=== PATIENT | female | born 1985 ===

== ENCOUNTER 2018-02-22 11:41 | Emergency (ER) | payer OTHER, SELFPAY ==
[2018-02-22] VITALS (7 sets, daily range): BP systolic 140–153; BP diastolic 86–107; PULSE 103–137; RESP 11–18; TEMP 36.5; O2SAT 97–99; BMI 29.9
[2018-02-22 12:21] LABS: INR 1.3 (0.9-1.3); Prothrombin Time 14.3 SECONDS (10.1-12.7)
[2018-02-22 12:23] LABS: PTT Partial Thromboplastin Tim 36 SECONDS (26.4-36.2)
[2018-02-22 12:27] LABS: Alanine Aminotransferase 24 IU/L (9-52); Albumin Globulin Ratio 0.7 (1.0-2.8); Alkaline Phosphatase 527 U/L (38-126); Aspartate Aminotransferase 58 IU/L (14-36); BUN Creatinine Ratio 18.3 (6-22); Bilirubin Total 0.8 mg/dL (0.2-1.3); Blood Urea Nitrogen 11 mg/dL (7-17); Calcium 8.4 mg/dL (8.4-10.2); Carbon Dioxide 32 mmol/L (22-32); Chloride 90 mmol/L (98-107); Estimated Glomerular Filt Rate > 60.0 mL/min (>60); Globulin 4.5 g/dL (1.7-4.1); Glucose 187 mg/dL (70-100); HEMOLYSIS < 15 (0-50); Lipase 12 U/L (23-300); Potassium 3.8 mmol/L (3.4-5.1); Sodium 132 mmol/L (137-145); Total Protein 7.5 g/dL (6.3-8.2)
[2018-02-22 12:29] LABS: Add Manual Diff / Slide Review NO; Basophils Percent Auto 0.7 % (0-2); Eosinophils Percent Auto 0.3 % (2-4); Hematocrit 28.7 % (36-46); Hemoglobin 9.1 g/dL (12.0-16.0); Mean Corpuscular HGB Conc 31.6 % (30-36); Mean Corpuscular Hemoglobin 21.7 PG (26-34); Mean Corpuscular Volume 68.7 fL (80-100); Monocytes Percent Auto 11.7 % (3-14); Neutrophils Absolute Auto 14900 /uL (3000-5900); Neutrophils Percent Auto 79.3 % (50-75); Red Blood Cell Count 4.18 X10^6/uL (4.0-5.2); Red Cell Distribution Width 18.7 % (11.6-14.8); White Blood Cell Count 18.8 X10^3/uL (4.5-11.0)
--- NOTE | 2018-02-22 12:39 | ED.NAVMDI ---
HPI - Nausea/Vomiting/Diarrhea General Chief complaint: Nausea/Vomiting/Diarrhea Stated complaint: SICK AND DIABETIC Time Seen by Provider: 02/22/18 12:14 Source: patient Mode of arrival: ambulatory Limitations: no limitations History of Present Illness HPI Narrative: Patient states she has been feeling nauseated and vomiting intermittently for the last 2 weeks. She states she just feels ?sick?. Patient does note that she has not vomited today, and has been able to hold down quite a bit of fluid. She states that she is feeling better here. Patient is a diabetic, but states that her blood sugars have not been running terribly high--in the 100s. Patient denies fevers, diarrhea, cough, chest pain, shortness of breath, rhinorrhea, or sore throat. No ear pain. No back pain. No dysuria. Patient has a history of a diabetic foot infection previously, but states that she does not have any skin or foot changes. No other complaints at this time. MD complaint: nausea and vomiting Onset (ago): week(s) (Two) Description of Vomiting: other (Stomach contents) Description of Diarrhea: none Associated Abdominal Pain: No Associated symptoms: anxiety Related Data Home Medications Medication Instructions Recorded Confirmed insulin aspart U-100 [Novolog 0 unit SQ TIDCC #0 02/06/16 02/22/18 Flexpen U-100 Insulin] insulin glargine [Lantus U-100 1 dose SQ BID #0 02/06/16 02/22/18 Insulin] dextroamphetamine-amphetamine 1 cap PO DAILY 02/22/18 dextroamphetamine-amphetamine 1 cap PO DAILY 02/22/18 02/22/18 Previous Rx's Medication Instructions Recorded ondansetron [Zofran ODT] 4 mg PO QID PRN #20 tab 02/22/18 sulfamethoxazole-trimethoprim 1 tab PO BID #14 tab 02/22/18 [Bactrim DS] Allergies Allergy/AdvReac Type Severity Reaction Status Date / Time No Known Drug Allergies Allergy Verified 02/22/18 11:48 Review of Systems Review of Systems All systems reviewed & are unremarkable except as noted in HPI and below Constitutional Denies chills, Denies fever(s), Denies lethargy and Reports malaise Eyes Denies change in vision, Denies eye discharge, Denies irritation and Denies loss of vision ENT Ears, Nose, Mouth, and Throat: Denies change in voice, Denies neck pain and Denies sore throat Cardiovascular Denies chest pain, Denies irregular heart rhythm, Denies lightheadedness, Denies palpitations, Denies dyspnea, Denies dyspnea on exertion and Denies orthopnea Respiratory Denies cough, Denies dyspnea, Denies dyspnea on exertion and Denies wheezing Gastrointestinal Gastrointestinal: Denies abdominal pain, Denies change in bowel habits, Denies diarrhea, Reports nausea and Reports vomiting Genitourinary Denies hematuria, Denies flank pain, Denies urinary incontinence and Denies urinary urgency Musculoskeletal Denies neck pain Integumentary/Breasts Denies pruritus, Denies erythema, Denies rash and Denies wounds Neurologic Denies confusion and Denies loss of vision Psychiatric Denies anxiety, Denies confusion, Denies depression, Denies homicidal ideation and Denies suicidal ideation Endocrine Denies palpitations Hematologic/Lymphatic Denies easy bruising Allergic/Immunologic Denies wheezing [facility] Medical History Diabetes (Acute) Surgical History No pertinent past surgical history (Acute) Social History Smoking Status: Unknown if ever smoked Exam Initial Vital Signs Initial Vital Signs: Vital Signs Pulse Rate 137 H 02/22/18 11:48 Respiratory Rate 18 02/22/18 11:48 Blood Pressure 149/107 H 02/22/18 11:48 Pulse Oximetry 97 02/22/18 11:48 Const General: cooperative and well developed Nutritional Appearance: well nourished Orientation: alert, awake, oriented x3 and not confused [facility] Head: normocephalic and atraumatic Ears: external ears normal Nose: external nose normal and No nasal discharge Face and sinus: face symmetric and No dry mucous membranes Mouth: oral mucosae normal and moist mucous membranes Teeth and gingiva: dentition normal Eyes General: appearance normal, both eyes and all related structures Eyelids: eyelids normal Conjunctivae: conjunctivae normal Sclera: sclerae normal Pupils: PERRL EOM: EOM intact bilaterally Neck Neck: normal visual inspection, trachea midline, No lymphadenopathy, No midline deformity and No JVD Lymphatic: No lymphedema Chest Chest: normal inspection of the chest Resp Effort & Inspection: normal respiratory effort, able to speak in complete sentences, no respiratory distress and no use of accessory muscles Auscultation: clear to auscultation bilaterally, no rales, no rhonchi and no wheezes Cardio Rate: regular rate Rhythm: regular rhythm Heart Sounds: no click, no gallops, no murmurs and no rubs Pulses: normal peripheral pulses GI Inspection: non-distended Palpation: soft, no hepatosplenomegaly, No guarding, No pulsatile mass and No tender Auscultation: normal bowel sounds Back/Spine/Pelvis Back: No CVA tenderness Cervical Spine: cervical ROM normal and No pain with cervical ROM Thoracic/Lumbar Spine: thoracic and lumbar spine normal to inspection Skin General: no rashes or lesions noted, No jaundice and No petechiae Neuro General: alert, oriented x3, gait normal and no focal motor deficits Speech: speech normal Extrem General: full ROM, no clubbing, cyanosis or edema, no pedal edema and no calf tenderness Psych Appearance: well kempt Mental Status: mental status grossly normal Attitude: cooperative Thought Content: normal and suicidality Judgment: judgment good Course Course Narrative: Patient was worked up with labs and UA. She was found to be tachycardic on arrival, and was given a L of normal saline and Zofran. Orders Ordered: Discontinued Medications Sodium Chloride (Normal Saline 0.9%) 1,000 mls @ 1,000 mls/hr IV BOLUS ONE Stop: 02/22/18 14:32 Last Infusion: 02/22/18 14:21 Dose: 0 mls/hr Admin: 02/22/18 13:40 Dose: 1,000 mls/hr Ondansetron HCl (Zofran) 4 mg IV NOW ONE Stop: 02/22/18 13:34 Last Admin: 02/22/18 13:40 Dose: 4 mg Trimethoprim/Sulfamethoxazole (Bactrim Ds) 1 tab PO NOW ONE Stop: 02/22/18 14:13 Last Admin: 02/22/18 14:16 Dose: 1 tab Vital Signs - 8 hr 02/22/18 11:48 02/22/18 11:53 02/22/18 12:22 Temperature 97.7 F Pulse Rate 137 H 118 H 111 H Respiratory Rate 18 12 12 Blood Pressure 149/107 H Blood Pressure [Right Arm] 149/107 H 140/105 H Pulse Oximetry 97 97 98 02/22/18 12:35 02/22/18 13:00 Temperature Pulse Rate 110 H 107 H Respiratory Rate 12 13 Blood Pressure Blood Pressure [Right Arm] 144/92 H 141/86 H Pulse Oximetry 98 98 MDM - Nausea/Vomiting/Diarrhea Medical Records Attestation: I reviewed the patient's medical records. Lab Data Attestation: I reviewed the patient's lab results. Result diagrams: 02/22/18 12:00 02/22/18 12:00 Lab Results 02/22/18 02/22/18 02/22/18 Range/Units 12:00 12:00 12:00 WBC 18.8 H (4.5-11.0) X10^3/uL RBC 4.18 (4.0-5.2) X10^6/uL Hgb 9.1 L (12.0-16.0) g/dL Hct 28.7 L (36-46) % MCV 68.7 L (80-100) fL MCH 21.7 L (26-34) PG MCHC 31.6 (30-36) % RDW 18.7 H (11.6-14.8) % Plt Count 668 H (150-400) X10^3/uL Neut % (Auto) 79.3 H (50-75) % Lymph % (Auto) 8.0 L (25-40) % [place] % (Auto) 11.7 (3-14) % Eos % (Auto) 0.3 L (2-4) % Baso % (Auto) 0.7 (0-2) % Neut # (Auto) 14341 H (6623-3729) /uL RBC Morphology See below Polychromasia 1+ H Anisocytosis 2+ H Microcytosis 2+ H PT 14.3 H (10.1-12.7) SECONDS INR 1.3 (0.9-1.3) APTT 36 (26.4-36.2) SECONDS Sodium 132 L (137-145) mmol/L Potassium 3.8 (3.4-5.1) mmol/L Chloride 90 L (98-107) mmol/L Carbon Dioxide 32 (22-32) mmol/L BUN 11 (7-17) mg/dL Creatinine 0.60 (0.52-1.04) mg/dL Estimated GFR > 60.0 (>60) mL/min BUN/Creatinine Ratio 18.3 (6-22) Glucose 187 H (70-100) mg/dL Calcium 8.4 (8.4-10.2) mg/dL Total Bilirubin 0.8 (0.2-1.3) mg/dL AST 58 H (14-36) IU/L ALT 24 (9-52) IU/L Alkaline Phosphatase 527 H (38-126) U/L Total Protein 7.5 (6.3-8.2) g/dL Albumin 3.0 L (3.5-5.0) g/dL Globulin 4.5 H (1.7-4.1) g/dL Albumin/Globulin Ratio 0.7 L (1.0-2.8) Lipase 12 L (23-300) U/L Urine Color Urine Appearance Urine pH (4.5-8.0) Ur Specific Rose (1.000-1.035) Urine Protein (Negative) Urine Glucose (UA) (Normal) g/dL Urine Ketones (NEGATIVE) Urine Occult Blood (Negative) Urine Nitrate (Negative) Urine Bilirubin (NEGATIVE) Urine Urobilinogen (0.2) E.U./dL Ur Leukocyte Esterase (NEGATIVE) Urine RBC (0-5/HPF) Urine WBC (0-5/HPF) Ur Squamous Epith Cells Ur Transition Epith Cell (0-5/HPF) Ur Renal Epithelial Cell Urine Bacteria (None) Ur Culture Indicated? Micro UA Comment 02/22/18 Range/Units 13:40 WBC (4.5-11.0) X10^3/uL RBC (4.0-5.2) X10^6/uL Hgb (12.0-16.0) g/dL Hct (36-46) % MCV (80-100) fL MCH (26-34) PG MCHC (30-36) % RDW (11.6-14.8) % Plt Count (150-400) X10^3/uL Neut % (Auto) (50-75) % Lymph % (Auto) (25-40) % [place] % (Auto) (3-14) % Eos % (Auto) (2-4) % Baso % (Auto) (0-2) % Neut # (Auto) (3110-0964) /uL RBC Morphology Polychromasia Anisocytosis Microcytosis PT (10.1-12.7) SECONDS INR (0.9-1.3) APTT (26.4-36.2) SECONDS Sodium (137-145) mmol/L Potassium (3.4-5.1) mmol/L Chloride (98-107) mmol/L Carbon Dioxide (22-32) mmol/L BUN (7-17) mg/dL Creatinine (0.52-1.04) mg/dL Estimated GFR (>60) mL/min BUN/Creatinine Ratio (6-22) Glucose (70-100) mg/dL Calcium (8.4-10.2) mg/dL Total Bilirubin (0.2-1.3) mg/dL AST (14-36) IU/L ALT (9-52) IU/L Alkaline Phosphatase (38-126) U/L Total Protein (6.3-8.2) g/dL Albumin (3.5-5.0) g/dL Globulin (1.7-4.1) g/dL Albumin/Globulin Ratio (1.0-2.8) Lipase (23-300) U/L Urine Color Yellow Urine Appearance Clear Urine pH 6.0 (4.5-8.0) Ur Specific Rose <=1.005 (1.000-1.035) Urine Protein 2+ H (Negative) Urine Glucose (UA) Negative (Normal) g/dL Urine Ketones Negative (NEGATIVE) Urine Occult Blood 3+ H (Negative) Urine Nitrate Negative (Negative) Urine Bilirubin Negative (NEGATIVE) Urine Urobilinogen 2.0 H (0.2) E.U./dL Ur Leukocyte Esterase Trace H (NEGATIVE) Urine RBC 1-5/hpf (0-5/HPF) Urine WBC 1-5/hpf (0-5/HPF) Ur Squamous Epith Cells 1-5 /hpf Ur Transition Epith Cell 0-1/hpf (0-5/HPF) Ur Renal Epithelial Cell 0-1/hpf Urine Bacteria Few (2-10) H (None) Ur Culture Indicated? Specimen cultured Micro UA Comment Not Reportable Point of Care Testing Test Results Negative Glucose POC 176 Urine Dip Bedside Urine Glucose Negative Bedside Urine Bilirubin - Negative Bedside Urine Ketone - Negative Urine Specific Rose 1.010 Bedside Urine Occult Blood +++ Bedside Urine pH 6.0 Bedside Urine Protein ++ 100 Bedside Urine Urobilinogen +/- 1mg Bedside Urine Nitrite - Negative Bedside Urine Leukocytes - Negative Esterase MDM Narrative Medical decision making narrative: patient was treated with IV fluids in the emergency department, and reported feeling better after this and Zofran. Her workup was unremarkable for concerning abnormalities in an acute or emergent sense. I spoke with the patient who is feeling much better and desired to go home. We have discussed management at home, as well as the usual indications for return. Patient's mother is present, and also understands. Discharge Plan Departure Patient Disposition: Home Clinical Impression: UTI (urinary tract infection), Vomiting Discharge Date/Time: 02/22/18 14:22 Interventions: ED Discharge Assessment Last Done: 02/22/18 14:22 Instructions: DI for Urinary Tract Infection (UTI), DI for Vomiting -- Adult Activity Restrictions/Additional Instructions: Your labs showed a moderately elevated blood glucose, as well as a moderately elevated white blood cell count. Urinalysis showed a urinary tract infection, which may be part of the reason you have felt sick for the last 2 weeks. Please take the antibiotics as directed, and the nausea medicine as needed. Be sure to get plenty of fluids to drink. If your symptoms are getting worse despite these treatments, please seek medical re-evaluation without delay. Prescriptions: New sulfamethoxazole-trimethoprim [Bactrim DS] 800-160 mg tablet 1 tab PO BID Qty: 14 RF: 0 ondansetron [Zofran ODT] 4 mg tablet,disintegrating 4 mg PO QID PRN (Reason: nausea and vomiting) Qty: 20 RF: 0 No Action insulin glargine [Lantus U-100 Insulin] 100 UNIT/1 ML solution 1 dose SQ BID Qty: 0 RF: 0 insulin aspart U-100 [Novolog Flexpen U-100 Insulin] 100 UNIT/1 ML insulin pen SQ TIDCC Qty: 0 RF: 0 dextroamphetamine-amphetamine 30 mg capsule,extended release 24hr 1 cap PO DAILY RF: 0 dextroamphetamine-amphetamine 15 mg capsule,extended release 24hr 1 cap PO DAILY RF: 0 Referrals: [facility] [Provider Group]
[2018-02-22 12:47] LABS: Platelet Count 668 X10^3/uL (150-400)
[2018-02-22 12:50] LABS: Anisocytosis 2+; Microcytosis 2+; Polychromasia 1+
[2018-02-22] MEDS: SODIUM CHLORIDE 0.9% 1,000 ML 1000 ML IV (13:40)
[2018-02-22] MEDS: ONDANSETRON 4 MG/2 ML INJ IV (13:40)
[2018-02-22 13:54] LABS: Appearance Urine UA CLEAR; Bilirubin Urine UA NEGATIVE (NEGATIVE); Color Urine UA YELLOW; Glucose Urine UA NEGATIVE (Normal); Ketones Urine UA NEGATIVE (NEGATIVE); Leukocyte Esterase Urine UA TRACE (NEGATIVE); Nitrite Urine UA Negative (Negative); Occult Blood Urine UA 3+ (Negative); Protein Urine UA 2+ (Negative); Specific Gravity Urine UA <=1.005 (1.000-1.035)
[2018-02-22 14:11] LABS: Bacteria Urine Few (2-10); Culture Indicated Urine Specimen Cultured; RBC Urine 1-5/HPF (0-5/HPF); Renal Epithelial Cells Urine 0-1/HPF; Squamous Epithelial Cell Urine 1-5 /HPF; Transitional Epi Cells Urine 0-1/HPF (0-5/HPF); WBC Urine 1-5/HPF (0-5/HPF)
[2018-02-22] MEDS: TRIMETH/SULFA 160/800 (DS) TABLET 1 TAB PO (14:16)
== END 2018-02-22 14:22 | disposition home or self-care (01) ==
PROVIDERS: Emergency Provider Emergency Medicine
DX: N39.0 Urinary tract infection, site not specified (principal); R11.10 Vomiting, unspecified
CPT/HCPCS: 36591; 80053; 81001; 81003; 81025; 82962; 83690; 85025; 85610; 85730; 87086; 93005; 93010; 96361; 96374; 99283; 99284; J2405

== ENCOUNTER 2018-03-01 19:58 | Emergency (ER) | payer OTHER, SELFPAY ==
[2018-03-01 20:02] VITALS: BP 157/102; PULSE 150; RESP 22; TEMP 36.8; O2SAT 96
[2018-03-01 21:00] VITALS: BP 145/90; PULSE 128; O2SAT 98
[2018-03-01 21:50] LABS: Add Manual Diff / Slide Review NO; Basophils Percent Auto 0.7 % (0-2); Eosinophils Percent Auto 0.5 % (2-4); Hematocrit 27.9 % (36-46); Hemoglobin 8.5 g/dL (12.0-16.0); Lymphocytes Percent Auto 8.1 % (25-40); Mean Corpuscular HGB Conc 30.5 % (30-36); Mean Corpuscular Hemoglobin 21.3 PG (26-34); Mean Corpuscular Volume 69.6 fL (80-100); Monocytes Percent Auto 11.4 % (3-14); Neutrophils Absolute Auto 12700 /uL (3000-5900); Neutrophils Percent Auto 79.3 % (50-75); Platelet Count 627 X10^3/uL (150-400); Red Blood Cell Count 4.01 X10^6/uL (4.0-5.2); Red Cell Distribution Width 19.2 % (11.6-14.8)
[2018-03-01 21:57] LABS: Alanine Aminotransferase 24 IU/L (9-52); Albumin 2.7 g/dL (3.5-5.0); Albumin Globulin Ratio 0.7 (1.0-2.8); Alkaline Phosphatase 495 U/L (38-126); Aspartate Aminotransferase 84 IU/L (14-36); Bilirubin Total 0.5 mg/dL (0.2-1.3); Blood Urea Nitrogen 14 mg/dL (7-17); Calcium 8.1 mg/dL (8.4-10.2); Carbon Dioxide 31 mmol/L (22-32); Chloride 90 mmol/L (98-107); Estimated Glomerular Filt Rate > 60.0 mL/min (>60); Globulin 4.1 g/dL (1.7-4.1); Glucose 407 mg/dL (70-100); HEMOLYSIS < 15 (0-50); Potassium 3.6 mmol/L (3.4-5.1); Sodium 128 mmol/L (137-145); Total Protein 6.8 g/dL (6.3-8.2)
[2018-03-01 22:00] VITALS: BP 138/94; PULSE 126; O2SAT 99
[2018-03-01 22:01] LABS: Ketones (Beta-Hydroxybutyrate) 1.26 mmol/L (<0.27)
[2018-03-01 22:10] LABS: Anisocytosis 1+; Hypochromasia 1+; Microcytosis 1+
[2018-03-01 22:12] LABS: PCO2 VBG 34.9 mmHg (45-50); PO2 VBG 53 mmHg (35-45); pH VBG 7.53 (7.31-7.41)
[2018-03-01 22:13] LABS: HCO3 VBG 29 mmol/L (24-28); Oxygen Saturation VBG 91 % (70-75); Total CO2 VBG 30 mmol/L (24-29)
[2018-03-01 22:18] LABS: Procalcitonin 4.39 ng/mL (<0.5)
[2018-03-01] MEDS: ONDANSETRON 4 MG/2 ML INJ IV (22:21)
[2018-03-01 22:23] LABS: Lactate (Lactic Acid) 0.8 mmol/L (0.7-2.1)
--- NOTE | 2018-03-01 22:34 | ED_ITS ---
HPI - Nausea/Vomiting/Diarrhea General Chief complaint: Nausea/Vomiting/Diarrhea Stated complaint: DIABETIC Time Seen by Provider: 03/01/18 21:18 Source: patient and old records reviewed Mode of arrival: ambulatory Limitations: no limitations History of Present Illness HPI Narrative: Patient is a 32-year-old female who presents is a type 1 diabetic presenting with nausea and vomiting. She was seen evaluated here on where she was diagnosed with a UTI. Her blood cultures and urine did not are actually grow anything. That time she leukocytosis of 18. She said she has lost about 20 lb over last couple months without trying. She has been to her doctors and feels like something is wrong but is brushed off. She is out of Lantus. However she is continuing to take her NovoLog. Overall she does not feel well. Initially quite tachycardic but afebrile. She says she has been dry heaving. She has difficulty keeping food down. She denies any blood or black tarry stool. She has no specific abdominal pain fever cough or shortness of breath. She says she stands up she frequently gets lightheaded she almost passes out. She cannot carry her son and she has not fully passed out but feels as though she does not have any strength. MD complaint: nausea, vomiting and abdominal pain Related Data Home Medications Medication Instructions Recorded Confirmed insulin aspart U-100 [Novolog 0 unit SQ TIDCC #0 02/06/16 03/02/18 Flexpen U-100 Insulin] insulin glargine [Lantus U-100 1 dose SQ BID #0 02/06/16 03/02/18 Insulin] dextroamphetamine-amphetamine 1 cap PO DAILY 02/22/18 03/02/18 dextroamphetamine-amphetamine 1 cap PO DAILY 02/22/18 03/02/18 Previous Rx's Medication Instructions Recorded ondansetron [Zofran ODT] 4 mg PO QID PRN #20 tab 02/22/18 sulfamethoxazole-trimethoprim 1 tab PO BID #14 tab 02/22/18 [Bactrim DS] insulin glargine [Lantus U-] 40 unit SUBCUT BID #10 ml 03/02/18 levofloxacin [Levaquin] 750 mg PO DAILY #5 tab 03/02/18 metoclopramide HCl [Reglan] 5 mg PO TID #14 tab 03/02/18 Allergies Allergy/AdvReac Type Severity Reaction Status Date / Time No Known Drug Allergies Allergy Verified 02/22/18 11:48 Review of Systems Review of Systems All systems reviewed & are unremarkable except as noted in HPI and below Constitutional Reports fatigue, Reports fever(s) and Reports poor appetite Eyes Denies change in vision, Denies eye discharge, Denies irritation and Denies loss of vision ENT Ears, Nose, Mouth, and Throat: Denies change in voice, Denies neck pain and Denies sore throat Cardiovascular Denies chest pain, Reports syncope (Near syncope), Reports rapid heart rate, Denies dyspnea and Denies dyspnea on exertion Respiratory Denies cough, Denies dyspnea, Denies dyspnea on exertion and Denies wheezing Gastrointestinal Gastrointestinal: Reports abdominal pain Genitourinary Denies hematuria, Denies flank pain, Denies urinary incontinence and Denies urinary urgency Musculoskeletal Denies neck pain Integumentary/Breasts Denies pruritus, Denies erythema, Denies rash and Denies wounds Neurologic Reports syncope (Near syncope) and Denies loss of vision Endocrine Reports fatigue Allergic/Immunologic Denies wheezing [facility] Social History Smoking Status: Current every day smoker Exam Initial Vital Signs Initial Vital Signs: Vital Signs Temperature 98.3 F 03/01/18 20:02 Pulse Rate 150 H 03/01/18 20:02 Respiratory Rate 22 03/01/18 20:02 Blood Pressure 157/102 H 03/01/18 20:02 Pulse Oximetry 96 03/01/18 20:02 GENERAL: Alert female frustrated appears in mild distress. Tearful HEENT: Head atraumatic,EOMI, pupils reactive, face symmetric, dry mucous membranes CARDIOVASCULAR: Tachycardic no murmur regular RESPIRATORY: Breath sounds equal bilaterally, no wheezes rales or rhonchi. ABDOMEN: Soft, nontender. Normoactive bowel sounds all 4 quadrants. No guarding or rebound. EXTREMITIES: Normal range of motion, no clubbing or edema. Neurovascularly intact Rectal: No gross blood faintly positive. NEUROLOGICAL: Alert and oriented x4.Normal gait and speech. Cranial nerves II through XII grossly intact. SKIN: Warm, dry, no laceration, no petechiae, no rashes or lesions. Chest Chest: normal inspection of the chest Scores PERC Score Age greater than or equal to 50 years: No Heart rate greater than or equal to 100 bpm: Yes Room Air O2 Sat less than 95%: No Unilateral leg swelling: No Recent trauma or surgery: No Hemoptysis: No Prior PE or DVT: No Hormone Use: No Total PERC Score: 1 Course Orders Ordered: ED Orders 03/01/18 20:43 Complete Blood Count AUTO DIFF Stat Comprehensive Metabolic Panel Stat D Dimer Stat Ketones (Beta-Hydroxybutyrate) Stat Procalcitonin Stat 03/01/18 21:43 EKG-12 Lead Stat 03/01/18 21:57 Blood Culture Stat Lactate (Lactic Acid) Stat 03/01/18 21:58 Venous Blood Gas Stat 03/01/18 23:22 CT abdomen pelvis w con Stat CT angio chest PE protocol Stat 03/01/18 23:50 Urine Microscopic Stat Discontinued Medications Lactated Ringer's (Lactated Ringers) 500 mls @ 2,000 mls/hr IV BOLUS ONE Stop: 03/01/18 22:57 Last Admin: 03/01/18 22:54 Dose: Lactated Ringer's (Lactated Ringers) 2,000 mls @ 1,000 mls/hr IV BOLUS ONE Stop: 03/02/18 00:42 Last Infusion: 03/02/18 01:55 Dose: 0 mls/hr Infusion: 03/02/18 00:25 Dose: 100 mls/hr Infusion: 03/01/18 23:54 Dose: 1,000 mls/hr Infusion: 03/01/18 23:31 Dose: 0 mls/hr Admin: 03/01/18 22:57 Dose: 1,000 mls/hr Levofloxacin (Levaquin) 750 mg in 150 mls @ 100 mls/hr IV NOW ONE Stop: 03/02/18 01:42 Last Infusion: 03/02/18 02:01 Dose: 100 mls/hr Admin: 03/02/18 00:22 Dose: 100 mls/hr Metoclopramide HCl (Reglan) 10 mg IV NOW ONE Stop: 03/01/18 22:44 Last Admin: 03/01/18 22:57 Dose: 10 mg Ondansetron HCl (Zofran) 4 mg IV NOW ONE Stop: 03/01/18 21:43 Last Admin: 03/01/18 22:21 Dose: 4 mg Pantoprazole Sodium (Protonix) 40 mg IV NOW ONE Stop: 03/01/18 22:45 Last Admin: 03/01/18 22:57 Dose: 40 mg Vital Signs - 8 hr 03/01/18 20:02 03/01/18 21:00 03/01/18 22:00 Temperature 98.3 F Pulse Rate 150 H 128 H 126 H Respiratory Rate 22 Blood Pressure 157/102 H Blood Pressure [Left Arm] 145/90 H 138/94 H Pulse Oximetry 96 98 99 03/01/18 23:00 03/02/18 00:00 Temperature Pulse Rate 112 H 104 H Respiratory Rate 20 20 Blood Pressure Blood Pressure [Left Arm] 145/80 H 136/89 Pulse Oximetry 98 99 MDM - Nausea/Vomiting/Diarrhea Medical Records Attestation: I reviewed the patient's medical records. Lab Data Attestation: I reviewed the patient's lab results. Result diagrams: 03/01/18 20:43 03/01/18 20:43 Lab Results 03/01/18 03/01/18 03/01/18 Range/Units 20:43 20:43 20:43 WBC 16.0 H (4.5-11.0) X10^3/uL RBC 4.01 (4.0-5.2) X10^6/uL Hgb 8.5 L (12.0-16.0) g/dL Hct 27.9 L (36-46) % MCV 69.6 L (80-100) fL MCH 21.3 L (26-34) PG MCHC 30.5 (30-36) % RDW 19.2 H (11.6-14.8) % Plt Count 627 H (150-400) X10^3/uL Neut % (Auto) 79.3 H (50-75) % Lymph % (Auto) 8.1 L (25-40) % [place] % (Auto) 11.4 (3-14) % Eos % (Auto) 0.5 L (2-4) % Baso % (Auto) 0.7 (0-2) % Neut # (Auto) 18067 H (6548-6011) /uL RBC Morphology See below Hypochromasia 1+ H Anisocytosis 1+ H Microcytosis 1+ H D-Dimer (<230) ng/mL VBG pH (7.31-7.41) VBG pCO2 (45-50) mmHg VBG pO2 (35-45) mmHg VBG HCO3 (24-28) mmol/L VBG Total CO2 (24-29) mmol/L VBG O2 Saturation (70-75) % VBG Base Excess (0-4) mmol/L Sodium 128 L (137-145) mmol/L Potassium 3.6 (3.4-5.1) mmol/L Chloride 90 L (98-107) mmol/L Carbon Dioxide 31 (22-32) mmol/L BUN 14 (7-17) mg/dL Creatinine 0.50 L (0.52-1.04) mg/dL Estimated GFR > 60.0 (>60) mL/min BUN/Creatinine Ratio 28.0 H (6-22) Glucose 407 H D (70-100) mg/dL Lactate (0.7-2.1) mmol/L Calcium 8.1 L (8.4-10.2) mg/dL Total Bilirubin 0.5 (0.2-1.3) mg/dL AST 84 H (14-36) IU/L ALT 24 (9-52) IU/L Alkaline Phosphatase 495 H (38-126) U/L Total Protein 6.8 (6.3-8.2) g/dL Albumin 2.7 L (3.5-5.0) g/dL Globulin 4.1 (1.7-4.1) g/dL Albumin/Globulin Ratio 0.7 L (1.0-2.8) Procalcitonin 4.39 H (<0.5) ng/mL Urine RBC (0-5/HPF) Urine WBC (0-5/HPF) Ur Squamous Epith Cells Amorphous Sediment Urine Bacteria (None) Hyaline Casts (None) Granular Casts (None) Urine Mucus (Negative) Ur Culture Indicated? Micro UA Comment Ketones 1.26 H (<0.27) mmol/L 03/01/18 03/01/18 03/01/18 Range/Units 20:43 21:57 21:58 WBC (4.5-11.0) X10^3/uL RBC (4.0-5.2) X10^6/uL Hgb (12.0-16.0) g/dL Hct (36-46) % MCV (80-100) fL MCH (26-34) PG MCHC (30-36) % RDW (11.6-14.8) % Plt Count (150-400) X10^3/uL Neut % (Auto) (50-75) % Lymph % (Auto) (25-40) % [place] % (Auto) (3-14) % Eos % (Auto) (2-4) % Baso % (Auto) (0-2) % Neut # (Auto) (8677-1759) /uL RBC Morphology Hypochromasia Anisocytosis Microcytosis D-Dimer 1838 H (<230) ng/mL VBG pH 7.53 H (7.31-7.41) VBG pCO2 34.9 L (45-50) mmHg VBG pO2 53 H (35-45) mmHg VBG HCO3 29 H (24-28) mmol/L VBG Total CO2 30 H (24-29) mmol/L VBG O2 Saturation 91 H (70-75) % VBG Base Excess 6.0 H (0-4) mmol/L Sodium (137-145) mmol/L Potassium (3.4-5.1) mmol/L Chloride (98-107) mmol/L Carbon Dioxide (22-32) mmol/L BUN (7-17) mg/dL Creatinine (0.52-1.04) mg/dL Estimated GFR (>60) mL/min BUN/Creatinine Ratio (6-22) Glucose (70-100) mg/dL Lactate 0.8 (0.7-2.1) mmol/L Calcium (8.4-10.2) mg/dL Total Bilirubin (0.2-1.3) mg/dL AST (14-36) IU/L ALT (9-52) IU/L Alkaline Phosphatase (38-126) U/L Total Protein (6.3-8.2) g/dL Albumin (3.5-5.0) g/dL Globulin (1.7-4.1) g/dL Albumin/Globulin Ratio (1.0-2.8) Procalcitonin (<0.5) ng/mL Urine RBC (0-5/HPF) Urine WBC (0-5/HPF) Ur Squamous Epith Cells Amorphous Sediment Urine Bacteria (None) Hyaline Casts (None) Granular Casts (None) Urine Mucus (Negative) Ur Culture Indicated? Micro UA Comment Ketones (<0.27) mmol/L 03/01/18 Range/Units 23:50 WBC (4.5-11.0) X10^3/uL RBC (4.0-5.2) X10^6/uL Hgb (12.0-16.0) g/dL Hct (36-46) % MCV (80-100) fL MCH (26-34) PG MCHC (30-36) % RDW (11.6-14.8) % Plt Count (150-400) X10^3/uL Neut % (Auto) (50-75) % Lymph % (Auto) (25-40) % [place] % (Auto) (3-14) % Eos % (Auto) (2-4) % Baso % (Auto) (0-2) % Neut # (Auto) (1314-1990) /uL RBC Morphology Hypochromasia Anisocytosis Microcytosis D-Dimer (<230) ng/mL VBG pH (7.31-7.41) VBG pCO2 (45-50) mmHg VBG pO2 (35-45) mmHg VBG HCO3 (24-28) mmol/L VBG Total CO2 (24-29) mmol/L VBG O2 Saturation (70-75) % VBG Base Excess (0-4) mmol/L Sodium (137-145) mmol/L Potassium (3.4-5.1) mmol/L Chloride (98-107) mmol/L Carbon Dioxide (22-32) mmol/L BUN (7-17) mg/dL Creatinine (0.52-1.04) mg/dL Estimated GFR (>60) mL/min BUN/Creatinine Ratio (6-22) Glucose (70-100) mg/dL Lactate (0.7-2.1) mmol/L Calcium (8.4-10.2) mg/dL Total Bilirubin (0.2-1.3) mg/dL AST (14-36) IU/L ALT (9-52) IU/L Alkaline Phosphatase (38-126) U/L Total Protein (6.3-8.2) g/dL Albumin (3.5-5.0) g/dL Globulin (1.7-4.1) g/dL Albumin/Globulin Ratio (1.0-2.8) Procalcitonin (<0.5) ng/mL Urine RBC 5-10/hpf H (0-5/HPF) Urine WBC 5-10/hpf H (0-5/HPF) Ur Squamous Epith Cells 10-30 /hpf H D Amorphous Sediment 1+ Urine Bacteria Moderate (10-30) H (None) Hyaline Casts 0-1/lpf (None) Granular Casts 0-1/lpf (None) Urine Mucus 1+ H (Negative) Ur Culture Indicated? Cult not indicated Micro UA Comment Not Reportable Ketones (<0.27) mmol/L Point of Care Testing Test Results Negative Glucose POC 385 Urine Dip Bedside Urine Glucose 1000 mg/dl Bedside Urine Bilirubin - Negative Bedside Urine Ketone +/- 5 Urine Specific [place] 1.010 Bedside Urine Occult Blood +++ Bedside Urine pH 6.0 Bedside Urine Protein ++ 100 Bedside Urine Urobilinogen 1+ 2mg Bedside Urine Nitrite - Negative Bedside Urine Leukocytes - Negative Esterase Imaging Data CT scan - abdomen: Radiologist's impression: retail shift supervisor report: Liver measures 26.5 cm in craniocaudal dimension. Liver contained innumerable rounded irregularly marginated low attenuation areas throughout the hepatic parenchyma both lobes in largest conglomeration in posterior segment of right lobe of the liver about 6.9 x 11.4 cm. This is concerning for metastatic neoplasm. Nodular enlargement of medial limb left adrenal gland measuring 1.6 x 1 cm. This may represent metastasis. Abdominal aorta appears normal in course and caliber. There are multiple enlarged lymph nodes in the periaortic retroperitoneum. This may be reactive or metastatic. CT PE: Radiologist's impression: retail shift supervisor report: Is no evidence of pulmonary embolism or dissection. Focal skin thickening in axillary region may represent focal cellulitis. Clinical correlation suggested. MediPort catheter is distal tip seen in superior vena cava. ECG Data Attestation: I personally reviewed and interpreted this ECG as follows: Prior ECG tracings: not available for review Interpretation: Is sinus tachycardia rate 120 no Q-waves no T-wave inversions no ST changes MDM Narrative Medical decision making narrative: The patient continues to have leukocytosis but is afebrile with a normal lactic acid. She does however have an elevated procalcitonin. Blood cultures and urine culture from his 1 week ago are negative. Not sure if elevated procalcitonin is in inflammatory response versus an infectious although in this case I suspect inflammatory. CT does reveal of likely cancer. She has multiple metastatic lesions in the liver. She has narrowing of the colon possible colon cancer She is also noted to be anemic she was seen evaluated in March 2017 with normal a blood work. The last 2 times that has slowly decreased. Today 8.5 and 27.9. This point does not meet transfusion criteria she is trace + positive on her rectal Hemoccult. The patient denies any known history of cancer. She does have a MediPort placed that was for his infusions when she needed IV antibiotics for a number of years ago she just never got taken out. I have discussed with Dr. Luciano possible admission. However she says that cancer diagnosis. Still likely be an outpatient workup. I have discussed at length with both patient and testing results of. She is given 1 dose of IV antibiotics recommend outpatient antibiotics as well. Also recommend that she needs Oncology and liver biopsy along with a lot possible colonoscopy. I also advised her that she may need a blood transfusion. Patient is quite adamant about going home. She has 3 children at home and would like to be with them. I discussed all findings with the patient and , Education has been performed regarding treatment plan, diagnosis, warning signs and symptoms and all concerns have been addressed. Verbally agree with and understood all of the above. Discharge Plan Departure Patient Disposition: Home Clinical Impression: Diabetes, Anemia Discharge Date/Time: 03/02/18 02:03 Interventions: ED Discharge Assessment Last Done: 03/02/18 02:02 Instructions: DI for Diabetes Type 1 -- Adult Activity Restrictions/Additional Instructions: *You have been diagnosed with diabetes *What to do: CT scan shows multiple liver spots highly concerning for cancer. He will need further evaluation as soon as possible with Oncology. Will likely need a biopsy and possible colonoscopy as well. You're also noted to be anemic. At this time do not recur her blood transfusion however this may change. (Hb 8.5/Hct 27.9) *Continue to take medications as directed Levaquin once a day for the next 5 days Lantus 40 units twice a day Reglan 5 mg every 6-8 hours if needed for nausea or vomiting *Follow up with your primary care provider in 2-3 days *Return to ER if you should have persistent vomiting, passing out, dizziness or any new, worsening or concerning symptoms Prescriptions: New insulin glargine [Lantus U-100 Insulin] 100 unit/mL solution 40 unit SUBCUT BID Qty: 10 RF: 0 metoclopramide HCl [Reglan] 5 mg tablet 5 mg PO TID Qty: 14 RF: 0 levofloxacin [Levaquin] 750 mg tablet 750 mg PO DAILY Qty: 5 RF: 0 No Action insulin glargine [Lantus U-100 Insulin] 100 UNIT/1 ML solution 1 dose SQ BID Qty: 0 RF: 0 insulin aspart U-100 [Novolog Flexpen U-100 Insulin] 100 UNIT/1 ML insulin pen SQ TIDCC Qty: 0 RF: 0 dextroamphetamine-amphetamine 30 mg capsule,extended release 24hr 1 cap PO DAILY RF: 0 dextroamphetamine-amphetamine 15 mg capsule,extended release 24hr 1 cap PO DAILY RF: 0 sulfamethoxazole-trimethoprim [Bactrim DS] 800-160 mg tablet 1 tab PO BID Qty: 14 RF: 0 ondansetron [Zofran ODT] 4 mg tablet,disintegrating 4 mg PO QID PRN (Reason: nausea and vomiting) Qty: 20 RF: 0 Referrals: [facility] [Outside]
--- NOTE | 2018-03-01 22:42 | PC.NURSE ---
Dr Nguyen at bedside assessing pt.
[2018-03-01] MEDS: LACTATED RINGERS 2,000 ML 1000 ML IV (22:57)
[2018-03-01] MEDS: METOCLOPRAMIDE 10 MG/2 ML INJ IV (22:57)
[2018-03-01] MEDS: PANTOPRAZOLE 40 MG VIAL IV (22:57)
[2018-03-01 23:00] VITALS: BP 145/80; PULSE 112; RESP 20; O2SAT 98
[2018-03-01 23:10] LABS: D Dimer 1838 ng/mL (<230)
--- NOTE | 2018-03-01 23:22 | DI.CT.S_ITS ---
PROCEDURE: CT ABDOMEN PELVIS W CON INDICATIONS: vomiting pain anemia TECHNIQUE: After the administration of intravenous contrast, 5 mm thick sections acquired from the diaphragm to the symphysis. 5 mm coronal and sagittal reformats were acquired. For radiation dose reduction, the following was used: automated exposure control, adjustment of mA and/or kV according to patient size. COMPARISON: [facility], CT, CT ANGIO CHEST PE PROTOCOL, 03/01/2018, 23:27. FINDINGS: Image quality: Excellent. ABDOMEN: Lung bases: Lung bases are clear. Heart size is normal. Note is made of a cutaneous lesion also present during chest CT scanning same day at the inferior medial right breast, seen on this CT. Additional cutaneous lesions were present involving the chest/breasts on the prior CT as noted below. Solid organs: Liver is moderately enlarged in size and heterogeneous in enhancement with moderate and large size multifocal hepatic metastatic lesions involving all hepatic segments. No associated biliary distention. Gallbladder has been previously resected. Extrahepatic biliary system is non dilated. Pancreas enhances normally. Spleen is normal in size and enhancement. No definite adrenal nodules. Kidneys demonstrate normal size and enhancement, without hydronephrosis. Peritoneum and bowel: Small bowel loops demonstrate normal wall thickness and caliber. Colonic loops demonstrate right-sided obstipation extending through the transverse colon and within the descending colon there is a pattern of circumferential mural thickening at approximately the distal third of the descending colon, worrisome for primary malignancy. No free fluid or air. Nodes and vessels: No mesenteric adenopathy by size criteria but there is mild retroperitoneal adenopathy seen at the periaortic retroperitoneum where several lymph nodes can be seen that are at or just above the upper limits of normal in size. This is best seen along the left margin of the aorta at the level of the mid and lower thirds of the left kidney. The largest lymph node in this area measures approximately 1.2 cm in short axis dimension.. Aorta and inferior vena cava are normal in size. Miscellaneous: No ventral hernias. PELVIS: Genitourinary: Bladder wall thickness is normal. Miscellaneous: No inguinal hernias or adenopathy. Bones: No suspicious bony lesions. No vertebral body compression fractures. IMPRESSION: Extensive hepatic metastatic disease. Within the descending colon there appears to be a colonic mass with circumferential mural thickening at the distal third of the descending colon, with colonic obstipation proximal to that area. A mild degree of periaortic adenopathy appears present, adjacent to the mid and lower thirds of the left kidney. Please also refer to chest CT obtained same day. Note is made of several cutaneous lesions along the anterior chest, involving the breasts bilaterally, and the lateral right axillary area. A Port-A-Cath was noted on the left during review of that examination and there is not available clinical history related to presumed chemotherapy. Note: These findings are concordant with the preliminary interpretation. However, a definite adrenal mass is not identified. Dictated by: Franklyn Franklin M.D. on 03/02/2018 at 8:17 Approved by: Franklyn Franklin M.D. on 03/02/2018 at 8:35
--- NOTE | 2018-03-01 23:22 | DI.CT.S_ITS ---
PROCEDURE: CT ANGIO CHEST PE PROTOCOL INDICATIONS: + dimer passing out TECHNIQUE: After the administration of intravenous contrast, 2 mm thick sections acquired from the pulmonary apices to the posterior costophrenic angles. 3-dimensional maximum intensity projection (MIP) coronal and sagittal reformats were then acquired through the thorax. For radiation dose reduction, the following was used: automated exposure control, adjustment of mA and/or kV according to patient size. COMPARISON: [facility], CT, CT ABDOMEN PELVIS W CON, 03/01/2018, 23:27. FINDINGS: Image quality: Excellent. Pulmonary arteries: Pulmonary arteries are normal in size, and demonstrate no intraluminal filling defects to suggest central pulmonary embolism. Lungs and pleura: Lungs are clear. No pleural effusions or pneumothorax. Central and peripheral airways are patent. Mediastinum: Heart size is normal, without pericardial effusion. No mediastinal or hilar adenopathy. Thoracic aorta is normal in caliber and enhancement. Esophagus is normal in caliber, without hiatal hernia. Bones and chest wall: No suspicious bony lesions. Ribs and thoracic spine appear intact throughout. Note is made of several cutaneous lesions that are fusiform, approximately 2.5 cm in maximal dimension, and are located at the cutaneous margin of the right axilla, the anterior medial lower right breast, and the border of the upper lateral left breast/axilla. A Port-A-Cath is seen on the left, with catheter extending normally into the superior vena cava, distal SVC. Thyroid gland appears normal where well visualized.. No axillary or supraclavicular adenopathy. Abdomen: Visualized upper abdominal solid organs appear normal in the early arterial phase of enhancement except the liver which contains numerous hypoenhancing lesions consistent with extensive metastatic disease. This is associated with a left lower descending colon masslike structure near the junction of the middle and lower thirds of the descending colon seen on abdominal CT scanning obtained same day. IMPRESSION: No pulmonary embolus seen. Extensive hepatic metastatic disease. Cutaneous lesions over the chest as discussed above. Left-sided Port-A-Cath extends into the distal SVC. Suspect hepatic metastatic disease is related to a region of concentric mural thickening of the left colon, inferiorly. Please also refer to abdominal CT report from same day. Dictated by: Franklyn Franklin M.D. on 03/02/2018 at 8:36 Approved by: Franklyn Franklin M.D. on 03/02/2018 at 8:41
--- NOTE | 2018-03-01 23:32 | PC.NURSE ---
Addendum entered by Trish Stringer R.N. 03/01/18 23:38: Pt refused test prior to CT. Dr Nguyen aware. Odalys from CT obtaining signed consent. Original Note: Pt aware of need for urine, states she does not need to void at this time.
[2018-03-02] VITALS: BP 136/89; PULSE 104; RESP 20; O2SAT 99
[2018-03-02 00:09] LABS: Squamous Epithelial Cell Urine 10-30 /HPF; WBC Urine 5-10/HPF (0-5/HPF)
[2018-03-02 00:10] LABS: Amorphous Sediment Urine 1+; Bacteria Urine Moderate (10-30); Granular Casts Urine 0-1/LPF; Hyaline Casts Urine 0-1/LPF; RBC Urine 5-10/HPF (0-5/HPF)
[2018-03-02 00:11] LABS: Culture Indicated Urine Cult Not Indicated; Mucus Urine 1+ (Negative)
[2018-03-02] MEDS: levoFLOXacin 750 MG/150 ML PIGGYBACK 100 MG IV (00:22)
--- NOTE | 2018-03-02 00:26 | PC.NURSE ---
Fluid bolus decreased to infuse IV abx as concurrent infusion.
--- NOTE | 2018-03-02 00:53 | PC.NURSE ---
Dr Nguyen at bedside.
[2018-03-02 18:33] LABS: Enterococcus species Not Detected (Not Detect); Listeria monocytogenes Not Detected (Not Detect); Staphylococcus species Detected (Not Detect)
[2018-03-02 18:34] LABS: Acinetobacter baumannii Not Detected (Not Detect); Enterobacteriaceae species Not Detected (Not Detect); Methicillin-resistant gene Detected (Not Detect); Streptococcus agalactiae (Gr B Not Detected (Not Detect); Streptococcus pneumonia Not Detected (Not Detect); Streptococcus pyogenes (Gr A) Not Detected (Not Detect); Streptococcus species Not Detected (Not Detect)
[2018-03-02 18:35] LABS: Candida albicans Not Detected (Not Detect); Candida glabrata Not Detected (Not Detect); Candida krusei Not Detected (Not Detect); Candida parapsilosis Not Detected (Not Detect); Candida tropicalis Not Detected (Not Detect); E. coli Not Detected (Not Detect); Enterobacter cloacae complex Not Detected (Not Detect); Haemophilus influenzae Not Detected (Not Detect); Neisseria meningitidis Not Detected (Not Detect); Proteus species Not Detected (Not Detect); Pseudomonas aeruginosa Not Detected (Not Detect); Serratia marcescens Not Detected (Not Detect)
== END 2018-03-02 02:03 | disposition home or self-care (01) ==
PROVIDERS: Emergency Provider Emergency Medicine
DX: E10.9 Type 1 diabetes mellitus without complications (principal); D64.9 Anemia, unspecified
CPT/HCPCS: 36415; 36591; 71275; 74177; 80053; 81003; 81015; 81025; 82009; 82805; 82962; 83605; 84145; 85025; 85379; 87040; 87077; 87147; 87150; 87186; 87205; 93005; 93010; 96361; 96365; 96366; 96375; 99284; 99285; C9113; J1956; J2405; J2765; Q9967